=== PATIENT | male | born 1965 ===

== ENCOUNTER → 2017-01-12 | Outpatient (REF) ==
--- NOTE | 2017-01-12 14:24 | REP ---
LEFT KNEE, FIVE VIEWS: HISTORY: Degenerative joint disease. The patient is status post partial total knee replacement. There is no acute fracture or dislocation. There is narrowing of the joint spaces. Osteophytes are present in the patella and femur. IMPRESSION: Degenerative change as described above. Signed by Mio Muhammad MD 01/12/2017 02:31 P
== END ==
LOC: M SMT 13:15
PROVIDERS: ATTEND Internal Medicine
DX: M54.5 Low back pain (principal)